=== PATIENT | male | born 2000 | race Two or more races ===

== ENCOUNTER 2021-07-12 22:18 | Emergency (ER) | payer SELFPAY ==
[~2021-07-12] VITALS: Ht 182.9 cm; Wt 68.2 kg
[2021-07-12 22:47] LABS: COVID AG,FIA SOURCE NASOPHARYNGEAL
[2021-07-12 23:00] VITALS: BP 149/76
[2021-07-12 23:00] LABS: RAPID GROUP A STREP NEGATIVE (NEGATIVE)
[2021-07-12] MEDS ORDERED: DEXAMETHASONE 4 MG TABLET PO ONE (23:00)
[2021-07-12] MEDS ORDERED: CLINDAMYCIN HCL 150 MG CAPSULE PO ONE (23:00)
[2021-07-12] MEDS ORDERED: NAPROXEN 250 MG TABLET PO ONE (23:00)
[2021-07-12 23:11] LABS: INFLUENZA TYPE A NEGATIVE FOR TYPE A (NEGATIVE); INFLUENZA TYPE B NEGATIVE FOR TYPE B (NEGATIVE)
[2021-07-12] MEDS ORDERED: ACETAMINOPHEN 325 MG TABLET PO ONE (23:15)
== END 2021-07-13 00:08 | disposition home or self-care (01) ==
LOC: EMS 22:23
DX: J36 Peritonsillar abscess (principal); Z20.822 Contact with and (suspected) exposure to COVID-19
CPT/HCPCS: 87426; 87430; 87804; 99284; J8540; U0003; Z7502; Z7610